=== PATIENT | female | born 1960 | race Caucasian/White ===

== ENCOUNTER 2020-10-02 15:25 | Emergency (ER) | payer OTHER ==
[~2020-10-02 15:25] MED LIST: BENTYL 20MG TAB20 MG PO; CYCLOBENZAPRINE10 MG PO; CYCLOBENZAPRINE5 MG PO; IBUPROFEN600 MG PO; MACROBID 100 M100 MG PO; PERCOCET 5-3251 EACH PO; PHENERGAN 25 MG25 M1 PO; TORADOL 10 MG T10 MG PO; TRAMADOL HCL50 MG PO; ULTRAM50 MG PO; ZOFRAN ODT 4 MG4 MG PO; ZOFRAN ODT 4 MG4 MG SL; ZOFRAN ODT4 MG PO; ZOFRAN4 MG PO
[2020-10-02 16:06] LABS: HEMOGLOBIN 13.2 gm/dl (12.3-15.3); RED BLOOD COUNT 4.33 M/UL (4.00-5.10); WHITE BLOOD COUNT 10.3 K/UL (4.5-11.0)
[2020-10-02 16:18] LABS: BUN/CREATININE RATIO 26 (0-10)
== END 2020-10-02 21:08 | disposition home or self-care (01) ==
LOC: ER1 15:25
PROVIDERS: Emergency Medicine; Family Medicine
DX: R06.00 Dyspnea, unspecified (principal); F11.10 Opioid abuse, uncomplicated; I50.9 Heart failure, unspecified; Z20.822 Contact with and (suspected) exposure to COVID-19; I11.0 Hypertensive heart disease with heart failure; I25.2 Old myocardial infarction; J44.9 Chronic obstructive pulmonary disease, unspecified; F41.9 Anxiety disorder, unspecified
CPT/HCPCS: 71045; 80053; 80307; 82550; 82553; 83874; 84439; 84443; 84484; 85025; 85379; 93005; 99284; Q9967; U0002

== ENCOUNTER 2021-03-12 13:33 | Emergency (ER) | payer OTHER ==
[2021-03-12] MEDS ORDERED: NAPROSYN500 MG PO (15:25)
== END 2021-03-12 17:00 | disposition home or self-care (01) ==
LOC: ER1 13:33
DX: M25.511 Pain in right shoulder (principal); F17.210 Nicotine dependence, cigarettes, uncomplicated; I50.9 Heart failure, unspecified; Z90.710 Acquired absence of both cervix and uterus
CPT/HCPCS: 73030; 96372; 99283; J1885

== ENCOUNTER → 2021-03-19 | Outpatient (CLI) | payer OTHER ==
[~2021-03-19] MED LIST changes: +NAPROSYN500 MG PO
== END ==
LOC: LAB 14:06
DX: D50.9 Iron deficiency anemia, unspecified (principal)
CPT/HCPCS: 36415; 83540; 83550

== ENCOUNTER → 2021-03-26 | Outpatient (CLI) | payer OTHER | LOC: KOH-I 09:28 | DX: M75.101 Unspecified rotator cuff tear or rupture of right shoulder, not specified as traumatic (principal); M25.511 Pain in right shoulder; G89.29 Other chronic pain; M19.011 Primary osteoarthritis, right shoulder; M25.411 Effusion, right shoulder; M75.51 Bursitis of right shoulder | CPT/HCPCS: 73221 ==

== ENCOUNTER → 2021-05-15 | Outpatient (CLI) | payer OTHER | LOC: KOH-I 10:03 | DX: M19.011 Primary osteoarthritis, right shoulder (principal) | CPT/HCPCS: 73200 ==

== ENCOUNTER → 2021-07-08 | Outpatient (CLI) | payer OTHER ==
[~2021-07-08] MED LIST changes: +AMLODIPINE BESYL5 MG PO; +DULOXETINE HCL60 MG PO; +ENTRESTO 49 MG1 EACH PO; +LO-DOSE ASPIRIN81 MG PO; +METOPROLOL TART25 MG PO; +OMEPRAZOLE40 MG PO
[2021-07-08 12:21] LABS: HEMOGLOBIN 13.1 gm/dl (12.3-15.3); RED BLOOD COUNT 4.19 M/UL (4.00-5.10); WHITE BLOOD COUNT 6.7 K/UL (4.5-11.0)
== END ==
LOC: OPSV2 11:00 → EDSTATUS 11:00 → OPSV2 11:05
PROVIDERS: Orthopaedic Surgery
DX: Z01.818 Encounter for other preprocedural examination (principal); M19.011 Primary osteoarthritis, right shoulder
CPT/HCPCS: 36415; 71046; 80048; 85025; 93005

== ENCOUNTER → 2021-07-10 | Outpatient (CLI) | payer OTHER ==
[2021-07-10 14:14] LABS: BUN/CREATININE RATIO 22 (0-10)
== END ==
LOC: LAB 13:31
PROVIDERS: Orthopaedic Surgery
DX: Z01.812 Encounter for preprocedural laboratory examination (principal)
CPT/HCPCS: 36415; 80048; 86850; 86900; 86901

== ENCOUNTER → 2021-09-23 | Outpatient (CLI) | payer OTHER ==
[2021-09-23 10:30] LABS: BUN/CREATININE RATIO 22 (0-10)
== END ==
LOC: LAB 09:07
PROVIDERS: Nurse Practitioner Family
DX: I50.9 Heart failure, unspecified (principal)
CPT/HCPCS: 36415; 80053; 83880

== ENCOUNTER → 2021-09-25 | Outpatient (CLI) | payer OTHER | LOC: KOH-I 13:26 | DX: S42.121A Displaced fracture of acromial process, right shoulder, initial encounter for closed fracture (principal) | CPT/HCPCS: 73200 ==

== ENCOUNTER → 2021-09-25 | Outpatient (CLI) | payer OTHER ==
[2021-09-25 12:43] LABS: RED BLOOD COUNT 4.04 M/UL (4.00-5.10); WHITE BLOOD COUNT 7.9 K/UL (4.5-11.0)
== END ==
LOC: LAB 12:28
PROVIDERS: Orthopaedic Surgery
DX: M25.511 Pain in right shoulder (principal)
CPT/HCPCS: 36415; 85025; 85652; 86140

== ENCOUNTER → 2021-10-09 | Outpatient (CLI) | payer OTHER | LOC: HEART 5 12:56 | DX: R93.1 Abnormal findings on diagnostic imaging of heart and coronary circulation (principal); I08.8 Other rheumatic multiple valve diseases ==

== ENCOUNTER → 2022-01-28 | Outpatient (CLI) | payer OTHER ==
[2022-01-28 10:06] LABS: BUN/CREATININE RATIO 21 (0-10)
== END ==
LOC: LAB 09:10
PROVIDERS: Family Medicine
DX: E87.5 Hyperkalemia (principal)
CPT/HCPCS: 36415; 80048